=== PATIENT | female | born 1995 | race Hispanic/Latino ===

== ENCOUNTER 2018-05-09 11:39 | Emergency (ER) | payer OTHER ==
[2018-05-09 12:55] LABS: Absolute Lymphocytes (CBC) 0.9 K/uL (0.7-4.9); Absolute Monocytes 0.7 K/uL (0.1-1.3); Absolute Neutrophil 8.6 K/uL (1.8-8.0); Basophils % 0.2 % (0-1.3); Eosinophils % 0.1 % (0-4.4); Hematocrit 30.4 % (36.0-45.0); Lymphocytes % 9.1 % (15.3-44.8); MCH 32.1 pg (27.0-35.0); MCV 91.7 fL (80-100); MPV 8.9 fL (7.6-11.3); Monocytes % 6.5 % (3.3-12.3); RBC Red Blood Cell Count 3.32 M/uL (3.86-4.86)
[2018-05-09] MEDS ORDERED: NA CHLORIDE 0.9% 1,000 ML ONE ×2 (12:57→13:52)
[2018-05-09 13:09] LABS: BUN Blood Urea Nitrogen 9 mg/dL (7-18); Bicarbonate 22 mmol/L (21-32); Glucose Level 105 mg/dL (74-106); Potassium 3.3 mmol/L (3.5-5.1); Sodium Level 138 mmol/L (136-145)
--- NOTE | 2018-05-09 15:09 | ER ---
Nurse's Notes [facility] Name: Jessica Orlando Age: 23 yrs Sex: Female : 1995 Arrival Date: 05/09/2018 Time: 11:45 Bed 23 Private MD: None, None Diagnosis: 27 weeks gestation of ;Vomiting;Diarrhea, unspecified Presentation: 05/09 11:50 Presenting complaint: Patient states: NAUSEA, VOMITING, DIARRHEA, FEVER WITH UTI x1 WK. bp Transition of care: patient was not received from another setting of care. Onset of symptoms is unknown. Risk Assessment: Do you want to hurt yourself or someone else? Patient reports no desire to harm self or others. Initial Sepsis Screen: Does the patient meet any 2 criteria? No. Patient's initial sepsis screen is negative. Does the patient have a suspected source of infection? No. Patient's initial sepsis screen is negative. Care prior to arrival: None. 11:50 Method Of Arrival: Ambulatory bp 11:50 Acuity: WANDA 3 bp Triage Assessment: 11:51 General: Appears in no apparent distress. comfortable, slender, Behavior is calm, bp cooperative, appropriate for age. Pain: Denies pain. 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 - Social history:: Smoking status: Patient/guardian denies using tobacco. - Ebola Screening: : Patient negative for fever greater than or equal to 101.5 degrees Fahrenheit, and additional compatible Ebola Virus Disease symptoms Patient denies exposure to infectious person Patient denies travel to an Ebola-affected area in the 21 days before illness onset No symptoms or risks identified at this time. Screenin:52 Abuse screen: Denies threats or abuse. Nutritional screening: No deficits noted. tw2 Tuberculosis screening: No symptoms or risk factors identified. Fall Risk None identified. Assessment: 13:21 Reassessment: Patient appears in no apparent distress at this time. No changes from tw2 previously documented assessment. Patient and/or family updated on plan of care and expected duration. Pain level reassessed. Patient is alert, oriented x 3, equal unlabored respirations, skin warm/dry/pink. 13:35 General: Appears in no apparent distress. slender, Behavior is calm, cooperative, tw2 appropriate for age. Pain: Denies pain. Neuro: Level of Consciousness is awake, alert, obeys commands, Oriented to person, place, situation. Cardiovascular: Denies chest pain, shortness of breath, Heart tones S1 S2 Patient's skin is warm and dry. Respiratory: Airway is patent Respiratory effort is even, unlabored, Respiratory pattern is regular, symmetrical, Breath sounds are clear bilaterally. GI: No signs and/or symptoms were reported involving the gastrointestinal system. : No signs and/or symptoms were reported regarding the genitourinary system. EENT: No signs and/or symptoms were reported regarding the EENT system. Derm: No signs and/or symptoms reported regarding the dermatologic system. Musculoskeletal: Range of motion: intact in all extremities. 13:50 Reassessment: pt states "i still dont have to urinate". tw2 14:13 Reassessment: Patient appears in no apparent distress at this time. No changes from tw2 previously documented assessment. Patient and/or family updated on plan of care and expected duration. Pain level reassessed. Patient is alert, oriented x 3, equal unlabored respirations, skin warm/dry/pink. 15:16 Reassessment: Patient appears in no apparent distress at this time. No changes from tw2 previously documented assessment. Patient and/or family updated on plan of care and expected duration. Pain level reassessed. Patient is alert, oriented x 3, equal unlabored respirations, skin warm/dry/pink. Vital Signs: 11:51 BP 95 / 63; Pulse 125; Resp 18; Temp 98.3; Pulse Ox 99% ; Weight 56.7 kg; Height 4 ft. bp 11 in. (149.86 cm); 13:21 BP 92 / 53; Pulse 100; Resp 17; Pulse Ox 100% on R/A; tw2 14:09 BP 95 / 65; Pulse 104; Resp 17; Pulse Ox 100% on R/A; tw2 15:16 BP 110 / 55; Pulse 100; Resp 19; Pulse Ox 99% on R/A; tw2 11:51 Body Mass Index 25.25 (56.70 kg, 149.86 cm) bp Vitals: 12:57 Heart Tones 134 BMP. tw2 ED Course: 11:45 Patient arrived in ED. mr 11:45 None, None is Private Physician. mr 11:49 Kimberly Crowe FNP-C [facility] kb 11:49 Raghav Seals MD is Attending Physician. kb 11:50 Triage completed. bp 11:51 Arm band placed on left wrist. bp 12:26 Marcelo Antunez, RN is Primary Nurse. bp 12:29 Primary Nurse role handed off by Marcelo Antunez, VICKY tw2 12:29 Yoselyn Galo RN is Primary Nurse. tw2 12:29 Bed in low position. Call light in reach. Pulse ox on. NIBP on. tw2 12:40 Inserted saline lock: 22 gauge in right antecubital area, using aseptic technique. tw2 Blood collected. 15:16 No provider procedures requiring assistance completed. IV discontinued, intact, tw2 bleeding controlled, No redness/swelling at site. Pressure dressing applied. Administered Medications: 12:57 Drug: NS 0.9% 1000 ml Route: IV; Rate: 1000 ml; Site: right antecubital; tw2 14:14 Follow up: Response: No adverse reaction; IV Status: Completed infusion; IV Intake: tw2 1000ml 13:48 Drug: NS 0.9% 1000 ml Route: IV; Rate: 1000 ml; Site: right antecubital; tw2 15:08 Follow up: Response: No adverse reaction; IV Status: Completed infusion; IV Intake: tw2 1000ml 15:07 Not Given (Patient Refused): Phenergan 25 mg IM once tw2 Intake: 14:14 IV: 1000ml; Total: 1000ml. tw2 15:08 IV: 1000ml; Total: 2000ml. tw2 Outcome: 15:09 Discharge ordered by . kb 15:16 Discharged to home ambulatory, with significant other. tw2 15:16 Condition: stable 15:16 Discharge instructions given to patient, significant other, Instructed on discharge instructions, follow up and referral plans. medication usage, Demonstrated understanding of instructions, follow-up care, medications, Prescriptions given X 1. 15:17 Patient left the ED. tw2 Signatures: Kimberly Crowe FNP-C DROP MACHINE OPERATOR-Michaelb Shaila Palomares mr Yoselyn Galo RN RN tw2 Marcelo Antunez RN RN bp
--- NOTE | 2018-05-09 15:09 | EDPHYS ---
Physician Documentation [facility] Name: Jessica Orlando Age: 23 yrs Sex: Female : 1995 Arrival Date: 05/09/2018 Time: 11:45 Bed 23 Private MD: None, None ED Physician Raghav Seals HPI: 05/09 13:42 This 23 yrs old Female presents to ER via Ambulatory with complaints of Flu kb Symptoms. 13:42 The patient presents to the emergency department with nausea, vomiting, diarrhea. kb Onset: The symptoms/episode began/occurred last night. Possible causes: unknown. The symptoms are aggravated by nothing. The symptoms are alleviated by nothing. Associated signs and symptoms: Pertinent positives: diarrhea, fever, nausea, vomiting. Severity of symptoms: At their worst the symptoms were moderate in the emergency department the symptoms are unchanged. The patient has not experienced similar symptoms in the past. The patient has not recently seen a physician. 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 - Social history:: Smoking status: Patient/guardian denies using tobacco. - Ebola Screening: : Patient negative for fever greater than or equal to 101.5 degrees Fahrenheit, and additional compatible Ebola Virus Disease symptoms Patient denies exposure to infectious person Patient denies travel to an Ebola-affected area in the 21 days before illness onset No symptoms or risks identified at this time. ROS: 13:40 Cardiovascular: Negative for chest pain, palpitations, and edema, Respiratory: Negative kb for shortness of breath, cough, wheezing, and pleuritic chest pain, Back: Negative for injury and pain, : Negative for injury, bleeding, discharge, and swelling, MS/Extremity: Negative for injury and deformity, Skin: Negative for injury, rash, and discoloration, Neuro: Negative for headache, weakness, numbness, tingling, and seizure. 13:40 Constitutional: Positive for chills, fever, Negative for body aches, fatigue, malaise, poor PO intake, weight loss. 13:40 Abdomen/GI: Positive for nausea, vomiting, and diarrhea. Exam: 13:41 Constitutional: This is a well developed, well nourished patient who is awake, alert, kb and in no acute distress. Head/Face: Normocephalic, atraumatic. ENT: Nares patent. No nasal discharge, no septal abnormalities noted. Tympanic membranes are normal and external auditory canals are clear. Oropharynx with no redness, swelling, or masses, exudates, or evidence of obstruction, uvula midline. Mucous membranes moist. Neck: Trachea midline, no thyromegaly or masses palpated, and no cervical lymphadenopathy. Supple, full range of motion without nuchal rigidity, or vertebral point tenderness. No Meningismus. Chest/axilla: Normal chest wall appearance and motion. Nontender with no deformity. No lesions are appreciated. Cardiovascular: Regular rate and rhythm with a normal S1 and S2. No gallops, murmurs, or rubs. Normal PMI, no JVD. No pulse deficits. Respiratory: Lungs have equal breath sounds bilaterally, clear to auscultation and percussion. No rales, rhonchi or wheezes noted. No increased work of breathing, no retractions or nasal flaring. Skin: Warm, dry with normal turgor. Normal color with no rashes, no lesions, and no evidence of cellulitis. MS/ Extremity: Pulses equal, no cyanosis. Neurovascular intact. Full, normal range of motion. Neuro: Awake and alert, GCS 15, oriented to person, place, time, and situation. Cranial nerves II-XII grossly intact. Motor strength 5/5 in all extremities. Sensory grossly intact. Cerebellar exam normal. Normal gait. 13:41 Abdomen/GI: Inspection: gravid appearance, is noted, Bowel sounds: normal, Palpation: abdomen is soft and non-tender. Vital Signs: 11:51 BP 95 / 63; Pulse 125; Resp 18; Temp 98.3; Pulse Ox 99% ; Weight 56.7 kg; Height 4 ft. bp 11 in. (149.86 cm); 13:21 BP 92 / 53; Pulse 100; Resp 17; Pulse Ox 100% on R/A; tw2 14:09 BP 95 / 65; Pulse 104; Resp 17; Pulse Ox 100% on R/A; tw2 15:16 BP 110 / 55; Pulse 100; Resp 19; Pulse Ox 99% on R/A; tw2 11:51 Body Mass Index 25.25 (56.70 kg, 149.86 cm) bp MDM: 12:27 Patient medically screened. kb 13:41 Data reviewed: vital signs, nurses notes. Data interpreted: Pulse oximetry: on room air kb is 100 %. Interpretation: normal. 15:08 Counseling: I had a detailed discussion with the patient and/or guardian regarding: the kb historical points, exam findings, and any diagnostic results supporting the discharge/admit diagnosis, lab results, the need for outpatient follow up, a family practitioner, to return to the emergency department if symptoms worsen or persist or if there are any questions or concerns that arise at home. ED course: pt tolerating po intake. 05/09 12:35 Order name: Basic Metabolic Panel; Complete Time: 13:12 kb 05/09 12:35 Order name: CBC with Diff; Complete Time: 12:58 kb 05/09 12:35 Order name: Flu; Complete Time: 13:12 kb 05/09 14:17 Order name: Urine Dipstick--Ancillary (enter results) bd 05/09 12:35 Order name: IV Saline Lock; Complete Time: 12:40 kb 05/09 12:35 Order name: Labs collected and sent; Complete Time: 12:40 kb 05/09 12:35 Order name: Urine Dipstick-Ancillary (obtain specimen); Complete Time: 14:17 kb 05/09 12:35 Order name: FHT's; Complete Time: 12:57 kb 05/09 15:01 Order name: PO challenge; Complete Time: 15:13 kb Administered Medications: 12:57 Drug: NS 0.9% 1000 ml Route: IV; Rate: 1000 ml; Site: right antecubital; tw2 14:14 Follow up: Response: No adverse reaction; IV Status: Completed infusion; IV Intake: tw2 1000ml 13:48 Drug: NS 0.9% 1000 ml Route: IV; Rate: 1000 ml; Site: right antecubital; tw2 15:08 Follow up: Response: No adverse reaction; IV Status: Completed infusion; IV Intake: tw2 1000ml 15:07 Not Given (Patient Refused): Phenergan 25 mg IM once tw2 Disposition: 05/10 06:58 Co-signature as Attending Physician, Raghav Seals MD I agree with the assessment and barron plan of care. Disposition: 10/09/18 15:09 Discharged to Home. Impression: 27 weeks gestation of , Vomiting, Diarrhea, unspecified. - Condition is Stable. - Discharge Instructions: Food Choices to Help Relieve Diarrhea, Adult, Viral Gastroenteritis, Adult, [id number], Diarrhea, Adult, [id number]. - Prescriptions for Diclegis 10- 10 mg Oral tablet,delayed release (DR/EC) - take 1 tablet by ORAL route once daily; 10 tablet. - Medication Reconciliation Form, Thank You Letter, Antibiotic Education, Prescription Opioid Use, Family Work Release form. - Follow up: Emergency Department; When: As needed; Reason: Worsening of condition. Follow up: Private Physician; When: 2 - 3 days; Reason: Recheck today's complaints, Continuance of care, Re-evaluation by your physician. Signatures: Dispatcher [employer] EDMS Kimberly Crwoe, BELT MOLDER-C BELT MOLDER-Raghav Alcaraz MD MD cha Wise, Tara, RN RN tw2 Marcelo Antunez RN RN bp Corrections: (The following items were deleted from the chart) 05/09 15:17 15:09 05/09/2018 15:09 Discharged to Home. Impression: 27 weeks gestation of ; tw2 Vomiting; Diarrhea, unspecified. Condition is Stable. Forms are Medication Reconciliation Form, Thank You Letter, Antibiotic Education, Prescription Opioid Use. Follow up: Emergency Department; When: As needed; Reason: Worsening of condition. Follow up: Private Physician; When: 2 - 3 days; Reason: Recheck today's complaints, Continuance of care, Re-evaluation by your physician. kb
[2018-05-09] MEDS ORDERED: PROMETHAZINE 25 MG/ML VIAL ONE (15:10)
[2018-05-09 16:18] LABS: Urine Blood NEGATIVE (NEG); Urine Glucose NEGATIVE (NEG); Urine Protein 1+ (NEG); Urine pH 6.5 (5.0-7.0)
== END 2018-05-09 15:17 | disposition home or self-care (01) ==
LOC: ER 11:39
DX: R19.7 Diarrhea, unspecified (principal); Z3A.27 27 weeks gestation of pregnancy
CPT/HCPCS: 36415; 80048; 81003; 85025; 87804; 96360; 96361; 99284; J2550; J7030